=== PATIENT | male | born 1970 | race Caucasian/White ===

== ENCOUNTER → 2018-10-25 | Day surgery (SDC) | payer OTHER ==
[~2018-10-25] MED LIST: CIPROFLOXACIN500 M1 PO; FLAGYL500 MG PO; NORCO 5-325 TA1 EACH PO; NOT TAKING ANY MEDS; OXYCODONE HCL 55 MG PO; PROBIOTIC1 EAC1 PO
--- NOTE | ~2018-10-25 | OP ---
[address] [address] OPERATIVE REPORT Name: ROXANA RDZ Room: [facility]#: [id number] Admission: 10/25/18 Attend Phys: Estelle Yanes DO Discharge: Date of : 70 Report #: [id number] THIS REPORT FOR: //name// CC: Estelle Christianson DICTATED BY: Sunday Arriaga DO DATE OF SERVICE: 10/25/2018 This is Sunday Arriaga DO, PGY-2 dictating for Estelle Yanes DO PREOPERATIVE DIAGNOSIS: Incisional hernia x 2. POSTOPERATIVE DIAGNOSIS: Incisional hernia x 3. SURGEON: Estelle Yanes DO CO-SURGEON: Nathanael Arriaga DO, PGY-2 AIRPORT OPERATIONS COORDINATOR: Daniel Moses MS3 OPERATION PERFORMED: Incisional hernia repair x 3, 2 with mesh and 1 closed primarily. ANESTHESIA: General and local. ESTIMATED BLOOD LOSS: 20. SPECIMENS: Hernia sac. COMPLICATIONS: None. CONDITION: Stable. DISPOSITION: PACU to home. INDICATIONS FOR PROCEDURE: The patient is a pleasant 48-year-old male, who presented to the office with chief complaint of abdominal pain and incisional hernias. The patient had previously undergone exploratory laparotomy for ruptured appendicitis. The patient was found to have 2 incisional hernias near the superior aspect of his prior laparotomy incision near the umbilicus, recommended open surgical repair of hernias. Full discussion of procedure, alternatives, risks and possible complications to include but not limited to bleeding, infection, postoperative pain, scarring, hernia recurrence, injury to other abdominal organs mainly bowel, mesh complications and anesthesia risks, [address] [address] OPERATIVE REPORT Name: ROXANA RDZ BERRY Room: [facility].#: [id number] Admission: 10/25/18 Attend Phys: Estelle Yanes DO Discharge: Date of : 70 Report #: [id number] the patient voiced understanding of these risks and agreed to proceed with surgery. OPERATIVE TECHNIQUE: The patient was again seen and examined in preop holding. Fully informed written consent was obtained. Preoperative antibiotics, 2 grams Ancef were given. The patient was transported to the operating room suite and placed on the operating room table in supine position. At that time, anesthesia induced general anesthesia via endotracheal intubation. General anesthesia was successful after a GlideScope was used to place endotracheal tube. SCDs were placed to bilateral lower extremity calves. Grounding pad was placed in right lateral thigh. The patient's arms were placed on arm boards out at the patient's sides. All joints and extremities were padded and protected. Timeout was performed prior to onset of procedure. The patient was prepped and draped using standard sterile fashion. Then, a timeout was performed. We began by making an incision over the previous laparotomy incision at the upper third of his incisional scar, dissecting down using blunt and electrocautery until the fascia was reached. There was noted to be 2 small 1 cm defects near the apex of the laparotomy incision and at the inferior portion just near the inferior aspect of the umbilicus. There was also an additional 0.5 cm hernia located laterally to the prior incision with containing omentum. This hernia sac was dissected down to the defect and excised and sent to [facility] [place] to be sent for pathology. The lateral defect was closed primarily with 2-0 Prolene vjchwy-uw-kqxbe interrupted sutures. Two small round Ventralex ST hernia meshes were brought on to the field, soaked in saline. The superior hernia defect was placed with an underlay mesh. This was sutured in place at the lateral edges of the defect on both sides. Fascia and mesh were then closed with 0 Prolene pnahqf-rh-sluve interrupted sutures incorporating mesh. Next, the inferior defect also was placed the underlay small round Ventralex ST hernia mesh. This was also sewn in using 0 Prolene at the lateral aspects of the fascial defects and was also closed with 2-0 Prolene kingcg-hw-ruhoq interrupted sutures. After this was performed, a layered closure was then done using 3-0 interrupted Vicryl to close the subcutaneous and deep dermal tissue layers and a running 4-0 Monocryl was used to close the skin. The patient tolerated the procedure well and was extubated in the operating room. Sterile dressings were applied after the skin was cleansed using wet and dry lap, Mastisol, Steri-Strips, gauze and Tegaderms. Abdominal binder was placed. The patient was transferred to PACU in stable condition after a brief recovery from anesthesia. We will plan to discharge home and follow up in office with Dr. Yanes in 1 week. By: 1011 [id number] Yanes DO /nt
--- NOTE | 2018-10-30 10:07 | PATH ---
[facility] [address] [place] [address] PATHOLOGY RPT PROCEDURE Name: ROXANA RDZ Room: [facility]#: [id number] Admission: 10/25/18 Date of : 70 Discharge: Report #: [id number] Path Case #: [id number] [facility] Accession Number: [id number] . 01 Material submitted: . HERNIA SAC . 01 Clinical history: . Incisional hernia . 02 Diagnosis: Hernia sac: - Benign, mesothelial-lined, fibromembranous / fibrofatty tissue with mild fibrosis. . (ZAC:mml; 10/26/2018) QL/10/26/2018 . 02 Electronically signed: . Jamal Gupta MD, Pathologist NPI- [id number] . 01 Gross description: . The specimen is received in formalin, labeled "Roxana Rdz, hernia sac", is a fibromembranous sac with attached adipose tissue measuring 2.0 x 1.2 x 0.5 cm. The specimen is serially sectioned and entirely submitted in A1. ([facility]; 10/25/2018) SHS/SHS . 02 Pathologist provided ICD-10: K43.2 . 02 CPT . 251180 Specimen Comment: A courtesy copy of this report has been sent to Specimen Comment: [phone], . Specimen Comment: Report sent to / DR MERRILL Specimen Comment: A duplicate report has been generated due to demographic updates. Performed at: [address], [place], [place] [id number] MD Drew Hernandes MD Phone: [phone] Performed at: 02 [facility] [address], [place], [place] [id number] MD Jamal Gupta MD Phone: [phone]
== END | disposition home or self-care (01) ==
LOC: M.SUR 06:16
DX: K43.2 Incisional hernia without obstruction or gangrene (principal); Z90.49 Acquired absence of other specified parts of digestive tract; Z98.890 Other specified postprocedural states